=== PATIENT | male | born 1955 | race Caucasian/White ===

== ENCOUNTER → 2016-12-24 | Outpatient (CLI) | payer BC | LOC: MW.CHUR 07:44 | PROVIDERS: ATTEND Urology | DX: N40.0 Benign prostatic hyperplasia without lower urinary tract symptoms (principal); R97.20 Elevated prostate specific antigen [PSA]; C61 Malignant neoplasm of prostate | CPT/HCPCS: 36415; 84153 ==

== ENCOUNTER 2017-05-11 06:18 | Day surgery (SDC) | payer BC ==
[~2017-05-11 06:18] MED LIST: Lactated Ringers 1,000 ML IV SCH
--- NOTE | 2017-05-11 07:02 | PCM.PREANE ---
Preanesthetic Assessment - Anesthesia/Transfusion/Family Hx Anesthesia History: Prior Anesthesia Without Reaction Family History of Anesthesia Reaction: No Transfusion History: No Prior Transfusion(s) Intubation History: Unknown - Review of Systems General: No Symptoms Pulmonary: No Symptoms Cardiovascular: No Symptoms Gastrointestinal: No symptoms Neurological: No Symptoms Other: Reports: None - Physical Assessment O2 Sat by Pulse Oximetry: 99 Respiratory Rate: 16 Vital Signs: Last Vital Signs Temp 36.3 C 05/11/17 06:40 Pulse 92 05/11/17 06:40 Resp 16 05/11/17 06:40 BP 127/78 05/11/17 06:40 Pulse Ox 99 05/11/17 06:40 Height: 1.78 m Weight: 80.739 kg ASA Class: 2 Mental Status: Alert & Oriented x3 Airway Class: Mallampati = 2 Dentition: Reports: Partial (upper and lower) Thyro-Mental Finger Breadths: 3 Mouth Opening Finger Breadths: 3 ROM/Head Extension: Limited/Partial Lungs: Clear to auscultation, Normal respiratory effort Cardiovascular: Regular Rate, Regular Rhythm - Allergies Allergies/Adverse Reactions: Allergies Allergy/AdvReac Type Severity Reaction Status Date / Time No Known Drug Allergies Allergy Other Verified 10/08/15 11:27 strawberry Allergy Rash Verified 10/08/15 11:26 - Blood Blood Available: No - Anesthesia Plan Pre-Op Medication Ordered: None - Acknowledgements Anesthesia Type Planned: MAC Pt an Appropriate Candidate for the Planned Anesthesia: Yes Alternatives and Risks of Anesthesia Discussed w Pt/Guardian: Yes Pt/Guardian Understands and Agrees with Anesthesia Plan: Yes PreAnesthesia Questionnaire HEENT History: Reports: Other (See Below) Other HEENT History: wears glasses Cardiovascular History: Reports: None Respiratory History: Reports: COPD (minimal SOB) Gastrointestinal History: Reports: None Genitourinary History: Reports: Other (See Below) (h/o prostate cancer 10/09 ( prostatectomy)) Musculoskeletal History: Reports: None Neurological History: Reports: Cerebral Aneurysms Psychiatric History: Reports: None Endocrine/Metabolic History: Reports: Obesity/BMI 30+ Hematologic History: Reports: None Immunologic History: Reports: None Oncologic (Cancer) History: Reports: Prostate Dermatologic History: Reports: None - Infectious Disease History Infectious Disease History: Reports: Other (See Below) Other Infectious Disease History: unable to recall - Past Surgical History Head Surgeries/Procedures: Reports: Other (See Below) HEENT Surgical History: Reports: Tonsillectomy Male Surgical History: Reports: Prostatectomy Other Neurological Surgeries/Procedures: hx of repair of cerbral aneurysm in 1982 Oncologic Surgical History: - SUBSTANCE USE Smoking Status *Q: Former Smoker (quit 2 years ago) Tobacco Use Within Last Twelve Months: Cigarettes Second Hand Smoke Exposure: Yes Recreational Drug Use History: No - HOME MEDS Home Medications: Home Meds Multivit-Min/FA/Lycopene/Lut [Centrum Silver Tablet] 1 tab PO DAILY 05/05/17 [ History] Foster-3 Fatty Acids/Fish Oil [Fish Oil Pearls Softgel] 1 tab PO DAILY 05/05/17 [ History] - CURRENT (IN HOUSE) MEDS Current Meds: Current Medications Lactated Ringer's (Ringers, Lactated) 1,000 mls @ 125 mls/hr IV ASDIRECTED [facility] Last Admin: 05/11/17 06:43 Dose: 125 mls/hr
[2017-05-11] MEDS ORDERED: Propofol 200 MG/20 ML SDV ONE ×2 (07:21→08:05)
[2017-05-11] MEDS ORDERED: fentaNYL 100 MCG/2 ML SDV ONE (07:21)
[2017-05-11] MEDS ORDERED: Midazolam 1 MG/ML 2 ML SDV ONE (07:21)
[2017-05-11] MEDS ORDERED: Lactated Ringers 1,000 ML IV SCH (08:30)
--- NOTE | 2017-05-11 08:35 | PCM.OPNOTE ---
- General Post-Op/Procedure Note Date of Surgery/Procedure: 05/11/17 Operative Procedure(s): Colonoscopy w/ snare rectal and cold descending colon polypectomies Pre Op Diagnosis: Desire for colorectal cancer screening Post-Op Diagnosis: Rectal polyp. Descending colon polyps. Sigmoid colon diverticulosis Anesthesia Technique: MAC (ASA II) Primary Surgeon: Lisandro Torres Condition: Good Free Text/Narrative:: Dictation [id number] CPT CODE 75738 & 03700
--- NOTE | 2017-05-11 08:56 | OR ---
SURGEON: Lisandro Torres M.D. DATE OF PROCEDURE: 05/11/2017 OPERATION PERFORMED: Colonoscopy with snare rectal polypectomy and cold descending colon polypectomy. ANESTHESIA: MAC. ASA CLASSIFICATION: II. PREOPERATIVE DIAGNOSIS: Desire for colorectal cancer screening. POSTOPERATIVE DIAGNOSES: 1. Large rectal polyp. 2. Descending colon polyps x2. 3. Sigmoid diverticulosis. DESCRIPTION OF PROCEDURE: The patient was taken to the endoscopy room and positioned on the endoscopy table in the left lateral decubitus position. Time-out was called for appropriate identification of the patient and procedure. Monitored anesthesia care was provided. The colonoscope was inserted into the rectum. Immediately, we saw a large polyp. We elected to remove this at the end of the procedure. The colonoscope was then advanced all the way to the cecum cannulating the ileocecal valve and visualizing the distal ileum. The distal ileum and cecum were carefully visualized. The colonoscope was retroflexed to visualize the ascending colon from below, then straightened and slowly withdrawn. The cecum, ascending colon, hepatic flexure, transverse colon, splenic flexure showed no tumors, polyps, diverticula, angiodysplasia, or evidence of inflammatory bowel disease. Two small polyps were encountered in the sigmoid colon and removed with the cold biopsy forceps. The sigmoid colon demonstrates numerous small diverticula. No stricture, spasm, or bleeding was noted. The colonoscope was then withdrawn to the rectum where a large polyp was encountered and this was removed with multiple applications of the snare electrocautery. Care was taken to adequately coagulate the specimen before transecting it. All of the specimen that was visualized was removed. The colonoscope was then reinserted and the polypectomy site inspected. There does not appear to be any perforation. The colonoscope was retroflexed in the distal rectum to visualize the anal orifice from above. No tumors, polyps, or acute hemorrhoidal changes were noted. The colonoscope was then straightened, the rectum aspirated, and the colonoscope removed. The patient tolerated the procedure well and was taken to recovery room in stable condition. ROSALINDA MONTANO /[id number]
[2017-05-11 09:32] VITALS: BP 124/94
== END 2017-05-11 09:10 | disposition home or self-care (01) ==
LOC: MW.SDS 06:18
PROVIDERS: ATTEND Surgery
PROC: 0DBM8ZZ Excision of Descending Colon, Via Natural or Artificial Opening Endoscopic (ICD-10-PCS; principal; 2017-05-11)
PROC: 0DBP8ZZ Excision of Rectum, Via Natural or Artificial Opening Endoscopic (ICD-10-PCS; 2017-05-11)
DX: Z12.11 Encounter for screening for malignant neoplasm of colon (principal); D12.4 Benign neoplasm of descending colon; D12.8 Benign neoplasm of rectum; K57.30 Diverticulosis of large intestine without perforation or abscess without bleeding; H26.9 Unspecified cataract; J44.9 Chronic obstructive pulmonary disease, unspecified; N40.1 Benign prostatic hyperplasia with lower urinary tract symptoms; R35.0 Frequency of micturition; E66.9 Obesity, unspecified; Z87.440 Personal history of urinary (tract) infections; Z85.46 Personal history of malignant neoplasm of prostate; Z87.891 Personal history of nicotine dependence; Z80.0 Family history of malignant neoplasm of digestive organs; Z91.018 Allergy to other foods; Z79.899 Other long term (current) drug therapy; Z98.890 Other specified postprocedural states; Z90.79 Acquired absence of other genital organ(s); Z90.89 Acquired absence of other organs; Z68.30 Body mass index [BMI] 30.0-30.9, adult
CPT/HCPCS: 45380; 45385; J2250; J3010; J7120; 00810; 88305; J2704

== ENCOUNTER 2019-05-30 09:43 | Day surgery (SDC) | payer MEDICARE, BC ==
[2019-05-30] MEDS ORDERED: fentaNYL 100 MCG/2 ML SDV ONE (10:57)
[2019-05-30] MEDS ORDERED: Midazolam 1 MG/ML 2 ML SDV ONE (10:57)
[2019-05-30] MEDS ORDERED: Ondansetron 4 MG/2 ML SDV ONE (10:57)
[2019-05-30] MEDS ORDERED: Propofol 200 MG/20 ML SDV ONE (10:57)
--- NOTE | 2019-05-30 11:10 | PCM.PREANE ---
Preanesthetic Assessment - Anesthesia/Transfusion/Family Hx Anesthesia History: Prior Anesthesia Without Reaction Family History of Anesthesia Reaction: No Transfusion History: Prior Transfusion Without Reaction Intubation History: Unknown - Review of Systems General: No Symptoms Pulmonary: No Symptoms Cardiovascular: No Symptoms Gastrointestinal: Other (polyps x3 in 2017, family h/o colon cancer) Neurological: No Symptoms Other: Reports: None - Physical Assessment O2 Sat by Pulse Oximetry: 95 Respiratory Rate: 15 Vital Signs: Last Vital Signs Temp 36.2 C 05/30/19 10:06 Pulse 88 05/30/19 10:06 Resp 15 05/30/19 10:06 BP 138/93 H 05/30/19 10:06 Pulse Ox 95 05/30/19 10:06 Height: 5 ft 10 in Weight: 92.986 kg ASA Class: 2 Mental Status: Alert & Oriented x3 Airway Class: Mallampati = 2 Dentition: Reports: Normal Dentition, Partial (upper and lower (middle)) Thyro-Mental Finger Breadths: 3 Mouth Opening Finger Breadths: 2 ROM/Head Extension: Limited/Partial Lungs: Clear to Auscultation, Normal Respiratory Effort Cardiovascular: Regular Rate, Regular Rhythm - Allergies Allergies/Adverse Reactions: Allergies Allergy/AdvReac Type Severity Reaction Status Date / Time No Known Drug Allergies Allergy Other Verified 05/25/19 14:12 strawberry Allergy Rash Verified 05/25/19 14:12 - Blood Blood Available: No - Anesthesia Plan Pre-Op Medication Ordered: None - Acknowledgements Anesthesia Type Planned: MAC Pt an Appropriate Candidate for the Planned Anesthesia: Yes Alternatives and Risks of Anesthesia Discussed w Pt/Guardian: Yes Pt/Guardian Understands and Agrees with Anesthesia Plan: Yes PreAnesthesia Questionnaire HEENT History: Reports: Cataract Other HEENT History: uses reading glasses, has upper and lower removable partial dentures Cardiovascular History: Reports: High Cholesterol, Hypertension Respiratory History: Reports: COPD (mild) Gastrointestinal History: Reports: Colon Polyp, Diverticulosis Genitourinary History: Reports: Prostate Disorder Other Genitourinary History: prostate cancer Musculoskeletal History: Reports: None Neurological History: Reports: Cerebral Aneurysms Psychiatric History: Reports: None Endocrine/Metabolic History: Reports: Obesity/BMI 30+ Hematologic History: Reports: None Immunologic History: Reports: None Oncologic (Cancer) History: Reports: Prostate Dermatologic History: Reports: None - Infectious Disease History Infectious Disease History: Reports: Other (See Below) Other Infectious Disease History: unable to recall - Past Surgical History Head Surgeries/Procedures: Reports: None HEENT Surgical History: Reports: Cataract Surgery, Tonsillectomy Cardiovascular Surgical History: Reports: Aneurysm Other Cardiovascular Surgeries/Procedures: Intracranial Aneurysm repair GI Surgical History: Reports: Colonoscopy (2 years ago) Male Surgical History: Reports: Prostatectomy Other Male Surgeries/Procedures: retropubic prostatectomy Other Neurological Surgeries/Procedures: hx of repair of cerbral aneurysm in 1982 Other Oncologic Surgeries/Procedures: Retropubic Prostatectomy - SUBSTANCE USE Smoking Status *Q: Former Smoker Tobacco Use Within Last Twelve Months: No Days Per Week of Alcohol Use: 7 Number of Drinks Per Day: 3 Total Drinks Per Week: 21 Recreational Drug Use History: No - HOME MEDS Home Medications: Home Meds Multivit-Min/FA/Lycopene/Lut [Centrum Silver Tablet] 1 tab PO DAILY 05/05/17 [ History] Albuterol [Ventolin HFA] 2 puff INH QID PRN 05/25/19 [History] Losartan Potassium 50 mg PO QAM 05/25/19 [History] atorvaSTATin Calcium [Atorvastatin Calcium] 10 mg PO DAILY 05/25/19 [History] - CURRENT (IN HOUSE) MEDS Current Meds: Current Medications Lactated Ringer's (Ringers, Lactated) 1,000 mls @ 125 mls/hr IV ASDIRECTED [facility] Last Admin: 05/30/19 10:14 Dose: 125 mls/hr Discontinued Medications Fentanyl (Sublimaze) Confirm Administered Dose 100 mcg .ROUTE .STK-MED ONE Stop: 05/30/19 10:58 Midazolam HCl (Versed 1 Mg/Ml) Confirm Administered Dose 2 mg .ROUTE .STK-MED ONE Stop: 05/30/19 10:58 Ondansetron HCl (Zofran) Confirm Administered Dose 4 mg .ROUTE .STK-MED ONE Stop: 05/30/19 10:58 Propofol (Diprivan 20 Ml) Confirm Administered Dose 400 mg .ROUTE .STK-MED ONE Stop: 05/30/19 10:58
--- NOTE | 2019-05-30 12:05 | PCM.OPNOTE ---
- General Post-Op/Procedure Note Date of Surgery/Procedure: 05/30/19 Operative Procedure(s): Colonoscopy with cold ascending colon polypectomy Pre Op Diagnosis: Personal history of colon polyps Post-Op Diagnosis: Ascending colon polyp. Mild sigmoid diverticulosis. Anesthesia Technique: MAC (ASA II) Primary Surgeon: Lisandro Torres Condition: Good Free Text/Narrative:: DICTATION [id number] CPT CODE [id number]
[2019-05-30] MEDS ORDERED: Lactated Ringers 1,000 ML IV SCH (12:15)
[2019-05-30 13:27] VITALS: BP 123/85; PULSE 91
--- NOTE | 2019-05-30 18:59 | OR ---
SURGEON: Lisandro Torres M.D. DATE OF PROCEDURE: 05/30/2019 OPERATION PERFORMED: Colonoscopy with cold ascending colon polypectomy. PRIMARY SURGEON: Lisandro Torres M.D. ANESTHESIA: MAC. ASA CLASSIFICATION: II. PREOPERATIVE DIAGNOSIS: Personal history of colon polyps. POSTOPERATIVE DIAGNOSES: 1. Ascending colon polyp. 2. Mild sigmoid diverticulosis. DESCRIPTION OF PROCEDURE: The patient was taken to the endoscopy room and positioned on the endoscopy table in the left lateral decubitus position. Time-out was called for appropriate identification of the patient and procedure. Monitored anesthesia care was provided. The colonoscope was inserted into the rectum and advanced with minimal difficulty to the cecum where the colonoscope was retroflexed to visualize the ascending colon from below. Cecum was identified by internal landmarks and external pressure. The cecum showed no tumors or polyps and no inflammatory changes. One small polyp was encountered in the ascending colon and removed with multiple bites of the cold biopsy forceps. No significant bleeding was noted. The remainder of the ascending colon, hepatic flexure, transverse colon, splenic flexure, and descending colon showed no tumors, polyps, diverticula, or angiodysplastic changes. Sigmoid colon demonstrates a few small scattered diverticula. No stricture, spasm, or bleeding was noted and no polyps were encountered. The colonoscope was withdrawn to the rectum and retroflexed to visualize the anal orifice from above. Again, no tumors or polyps were seen and there were no acute hemorrhoidal changes. The colonoscope was then straightened, the rectum aspirated, and the colonoscope removed. The patient tolerated the procedure well and was taken to recovery room in stable condition. ROSALINDA / CHARMAINE /[id number]
== END 2019-05-30 12:58 | disposition home or self-care (01) ==
LOC: MW.SDS 09:43
PROVIDERS: ATTEND Surgery
DX: Z12.11 Encounter for screening for malignant neoplasm of colon (principal); K63.5 Polyp of colon; K57.30 Diverticulosis of large intestine without perforation or abscess without bleeding; J44.9 Chronic obstructive pulmonary disease, unspecified; M19.012 Primary osteoarthritis, left shoulder; E78.5 Hyperlipidemia, unspecified; I10 Essential (primary) hypertension; F17.210 Nicotine dependence, cigarettes, uncomplicated; R97.20 Elevated prostate specific antigen [PSA]; M75.102 Unspecified rotator cuff tear or rupture of left shoulder, not specified as traumatic; E78.00 Pure hypercholesterolemia, unspecified; E66.9 Obesity, unspecified; Z68.29 Body mass index [BMI] 29.0-29.9, adult; Z86.010 Personal history of colon polyps; Z80.0 Family history of malignant neoplasm of digestive organs; Z91.018 Allergy to other foods; Z79.899 Other long term (current) drug therapy; Z85.46 Personal history of malignant neoplasm of prostate
CPT/HCPCS: 45380; J2250; J2704; J7120; 00812; 88305; J2405; J3010

== ENCOUNTER 2021-09-11 22:29 | Emergency (ER) | payer MEDICARE, BC ==
--- NOTE | 2021-09-11 23:03 | EDM.PDOC ---
ED HPI GENERAL MEDICAL PROBLEM - General Stated Complaint: INTOXICATION Time Seen by Provider: 09/11/21 22:37 Source of Information: Reports: Patient History Limitations: Reports: Intoxication - History of Present Illness INITIAL COMMENTS - FREE TEXT/NARRATIVE: 66-year-old male with history of craniotomy and suprasellar cistern aneurysmal clipping was brought here by EMS after falling after drinking 20 beers at a bar. He denies any pain. Patient denies fever, chills, headache, chest pain, shortness of breath, abdominal pain, focal numbness or weakness. ROS: A 10-point review of systems, other than pertinent positives and negatives as stated per HPI, is otherwise negative Past medical history: No additional pertinent history Past Surgical history: No additional pertinent history Social history: No additional pertinent history Family history: No additional pertinent history PHYSICAL EXAM General: AOx4, GCS = 15, intoxicated, no distress HEENT: dry mucous membrane, NC/AT Neck: supple, no meningismus, no Kernig or Brudzinski Cardiac: S1S2 RRR Respiratory: CTAB, no crackles or rales, no wheezing Abdomen: Soft, nontender, no rebound or guarding, nondistended, no pulsatile mass. Back: nontender Musculoskeletal: NVI distally, no deformity Neuro: No focal deficits - Related Data Allergies Allergy/AdvReac Type Severity Reaction Status Date / Time No Known Drug Allergies Allergy Other Verified 09/11/21 23:34 strawberry Allergy Rash Verified 09/11/21 23:34 Home Meds: Home Meds Multivit-Min/FA/Lycopen/Lutein [Centrum Silver Tablet] 1 tab PO DAILY 05/05/17 [History] Albuterol [Ventolin HFA] 2 puff INH QID PRN 05/25/19 [History] Losartan Potassium 50 mg PO QAM 05/25/19 [History] atorvaSTATin Calcium [Atorvastatin Calcium] 10 mg PO DAILY 05/25/19 [History] Past Medical History HEENT History: Reports: Cataract Other HEENT History: uses reading glasses, has upper and lower removable partial dentures Cardiovascular History: Reports: High Cholesterol, Hypertension Respiratory History: Reports: COPD (mild) Gastrointestinal History: Reports: Colon Polyp, Diverticulosis Genitourinary History: Reports: Prostate Disorder Other Genitourinary History: prostate cancer Musculoskeletal History: Reports: None Neurological History: Reports: Cerebral Aneurysms Psychiatric History: Reports: None Endocrine/Metabolic History: Reports: Obesity/BMI 30+ Hematologic History: Reports: None Immunologic History: Reports: None Oncologic (Cancer) History: Reports: Prostate Dermatologic History: Reports: None - Infectious Disease History Infectious Disease History: Reports: Other (See Below) Other Infectious Disease History: unable to recall - Past Surgical History Head Surgeries/Procedures: Reports: None HEENT Surgical History: Reports: Cataract Surgery, Tonsillectomy Cardiovascular Surgical History: Reports: Aneurysm Other Cardiovascular Surgeries/Procedures: Intracranial Aneurysm repair GI Surgical History: Reports: Colonoscopy (2 years ago) Male Surgical History: Reports: Prostatectomy Other Male Surgeries/Procedures: retropubic prostatectomy Other Neurological Surgeries/Procedures: hx of repair of cerbral aneurysm in 1982 Other Oncologic Surgeries/Procedures: Retropubic Prostatectomy Social & Family History - Family History HEENT: Reports: Cataract, Glaucoma Cardiac: Reports: High Cholesterol GI: Reports: Cholelithiasis, Other (See Below) Other GI Family History: cholesystectomy OBGYN: Reports: , Other (See Below) Other OBGYN Family History: ovarian cyst Neurological: Reports: Alzheimers Disease Endocrine/Metabolic: Reports: Diabetes, type II Oncologic: Reports: Breast, Leukemia, Ovarian, Prostate - Caffeine Use Caffeine Use: Reports: Coffee ED ROS GENERAL - Review of Systems Review Of Systems: See Below (see dictation) ED EXAM, GENERAL - Physical Exam Exam: See Below (see dictation) Course - Vital Signs Last Recorded V/S: Last Vital Signs Temp 96.8 F L 09/11/21 22:30 Pulse 62 09/12/21 00:40 Resp 19 09/12/21 00:40 BP 137/74 09/12/21 00:40 Pulse Ox 96 09/12/21 00:40 - Orders/Labs/Meds Orders: Active Orders 24 hr Category Date Time Status DRUG SCREEN, URINE [URCHEM] Stat Lab 09/12/21 01:49 Ordered - Re-Assessments/Exams Free Text/Narrative Re-Assessment/Exam: 09/12/21 01:50 I reassessed the patient, patient is now clinically sober. He denies any headache, nausea, vomiting. 09/12/21 0156 After prolonged observation in the ER, the patient is no longer intoxicated and has become clinically sober. He is currently stable for discharge. I performed a repeat exam and did not appreciate new abnormal findings. Patient has no headache. He exhibits normal vital signs and has a normal gait on road test. I advised the patient to return to the ER for reevaluation if symptoms worsened, including fever, worsening headache, or any other worrisome symptoms. I instructed the patient to follow up with their PCP within 2-3 days. MEDICAL DECISION MAKING: This patient was evaluated during the COVID-19 pandemic where resources and capacity might be affected. I reviewed the patients past medical records, lab and radiographic findings. I discussed the case with the patient. My differential diagnosis included: ICH, skull fracture. CT demonstrated abnormal findings in the temporal lobe, he has a history of craniotomy for aneurysmal clipping. He does not have headache currently. I notified him of the incidental findings on their CT scan, and need for follow-up with PMD for further work-up to monitor this or determine significance of finding. Pt voiced understanding and questions were answered. Departure - Departure Time of Disposition: 01:56 Disposition: Home, Self-Care 01 Condition: Good Clinical Impression: Alcohol abuse - Discharge Information *PRESCRIPTION DRUG MONITORING PROGRAM REVIEWED*: Not Applicable *COPY OF PRESCRIPTION DRUG MONITORING REPORT IN PATIENT DARRICK: Not Applicable Instructions: Alcohol Intoxication, [id number] Referrals: PCP,None [Primary Care Provider] - Forms: ED Department Discharge Additional Instructions: The need for follow-up, as well as the timing and circumstances, are variable depending upon the specifics of your emergency department visit. If you don't have a primary care physician on staff, we will provide you with a referral. We always advise you to contact your personal physician following an emergency department visit to inform them of the circumstance of the visit and for follow-up with them and/or the need for any referrals to a consulting specialist. The emergency department will also refer you to a specialist when appropriate. This referral assures that you have the opportunity for follow-up care with a specialist. All of these measure are taken in an effort to provide you with optimal care, which includes your follow-up. Under all circumstances we always encourage you to contact your private physician who remains a resource for coordinating your care. When calling for follow-up care, please make the office aware that this follow-up is from your recent emergency room visit. If for any reason you are refused follow-up, please contact the Emergency Department at and asked to speak to the emergency department charge nurse. If you do not have a primary care doctor, please follow up with the clinics below within 3-5 days. [facility] [address] [place] [id number] [facility] [address] [place] [id number] Sepsis Event Note (ED) - Focused Exam Vital Signs: Vital Signs Temp Pulse Resp BP Pulse Ox 09/12/21 00:40 62 19 137/74 96 09/11/21 22:30 96.8 F L 58 L 16 138/69 95 - My Orders Last 24 Hours: My Active Orders 09/12/21 01:49 DRUG SCREEN, URINE [URCHEM] Stat - Assessment/Plan Last 24 Hours: My Active Orders 09/12/21 01:49 DRUG SCREEN, URINE [URCHEM] Stat
--- NOTE | 2021-09-11 23:20 | CT ---
INDICATION: Alcohol intoxication head injury from fall TECHNIQUE: CT Head without i.v. contrast. Coronal and sagittal reformats were obtained. COMPARISON: None FINDINGS: CSF space: Aneurysm clipping is present and the suprasellar cistern causing extensive beam hardening artifacts. Brain: A small chronic lacunar infarct is present in the left caudate head. There is an oblong hyperdense lesion along the left temporal pole with speckled calcifications measuring 1.8 x 1 cm. No mass-effect or midline shift is seen. Mild diffuse cortical atrophy is noted. Calvarium: Mucosal thickening is seen in the maxillary, ethmoid and frontal sinuses. The mastoid air cells are clear. The patient is status post bilateral cataract removal. The patient is status post a right temporal craniotomy. IMPRESSION: 1. There is an oblong hyperdense lesion along the left temporal pole with speckled calcifications measuring 1.8 x 1 cm. Comparison with any prior outside imaging is recommended. 2. No CT evidence of intracranial hemorrhage or mass effect seen. Dictated by Eliseo Valente MD @ 09/11/2021 11:18:51 PM Please note that all CT scans at this facility use dose modulation, iterative reconstruction, and/or weight-based dosing when appropriate to reduce radiation dose to as low as reasonably achievable. Dictated by: Eliseo Valente MD @ 09/11/2021 23:18:56 (Electronically Signed)
--- NOTE | 2021-09-11 23:32 | CT ---
INDICATION: ETOH. Status post fall. COMPARISON: None available TECHNIQUE: CT examination of the cervical spine is performed without contrast using spiral technique. 2 mm thick axial, sagittal and coronal reconstructions were made. Please note that all CT scans at this facility use dose modulation, iterative reconstruction, and/or weight-based dosing when appropriate to reduce radiation dose to as low as reasonably achievable. FINDINGS: : There is minimal anterior subluxation of C3 on C4 and of C4 on C5 which are probably degenerative, associated with mild bilateral facet arthropathy. No additional subluxation is seen elsewhere in the cervical spine. There is fusion of C2 and C3 in anatomic alignment with partial absence of the disc space and fusion of the facet joints. There is no sign of acute osseous injury, with no sign of fracture of the cervical vertebral bodies or posterior elements. There is no sign of prevertebral soft tissue swelling. There is moderate C6-7 disc degenerative disease with mild diffuse disc bulging and moderate posterior osteophytic ridging. There is severe left and mild right foraminal stenosis from uncovertebral joint hypertrophy. At C5-6, the disc is normal in height. There is mild diffuse disc bulging with posterior osteophytic ridging. There is severe right and mild left foraminal stenosis from uncovertebral joint hypertrophy. There is mild C7-T1 disc degenerative disease. 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 The airway structures are normal in appearance. The visualized skull base is normal in appearance. 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 There is a mixture right anterior temporal craniotomy. There is moderate left greater than right chronic maxillary sinusitis. There is moderate scattered bilateral ethmoid and mild bilateral sphenoid chronic sinusitis. The apices of the lungs are clear. IMPRESSION: No sign of acute osseous injury the cervical spine. Minimal anterior subluxation of C3 on C4 and of C4 on C5 which are probably degenerative. Severe foraminal stenosis on the right at C5-6 and on the left at C6-7. Fusion of C2 and C3 in anatomic alignment. 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 Please note that all CT scans at this facility use dose modulation, iterative reconstruction, and/or weight-based dosing when appropriate to reduce radiation dose to as low as reasonably achievable. Dictated by Suleman Gallego MD @ 09/11/2021 11:31:52 PM (Electronically Signed)
[2021-09-12 02:03] VITALS: BP 135/80; PULSE 72
== END 2021-09-12 02:03 | disposition home or self-care (01) ==
LOC: MW.ED 22:29
DX: F10.10 Alcohol abuse, uncomplicated (principal); E78.00 Pure hypercholesterolemia, unspecified; I10 Essential (primary) hypertension; J44.9 Chronic obstructive pulmonary disease, unspecified; E66.9 Obesity, unspecified; Z68.25 Body mass index [BMI] 25.0-25.9, adult; Z91.018 Allergy to other foods; Z79.899 Other long term (current) drug therapy
CPT/HCPCS: 70450; 70450-26; 72125; 72125-26; 99284-25